=== PATIENT | female | born 1990 | race Hispanic/Latino ===

== ENCOUNTER 2022-10-30 11:55 | Emergency (ER) | payer OTHER, SELFPAY ==
[2022-10-30 12:20] LABS: Absolute Lymphocytes (CBC) 2.3 K/uL (0.7-4.9); Hematocrit 36.6 % (36.0-45.0); Lymphocytes % 24.1 % (15.3-44.8); MCV 84.4 fL (80-100); MPV 9.2 fL (7.6-11.3); RBC Red Blood Cell Count 4.34 M/uL (3.86-4.86)
[2022-10-30] MEDS ORDERED: NA CHLORIDE 0.9% 500 ML ONE (12:27)
[2022-10-30] MEDS ORDERED: METOCLOPRAMIDE 10 MG/2mL INJ ONE (12:27)
[2022-10-30] MEDS ORDERED: DIPHENHYDRAMINE 50 MG/ML VIAL ONE (12:27)
[2022-10-30 12:34] LABS: Potassium 3.3 mEq/L (3.5-5.1)
--- NOTE | 2022-10-30 13:06 | RAD REPORT ---
EXAM DESCRIPTION: CT - Head Brain Wo Cont - 10/30/2022 12:38 pm CLINICAL HISTORY: acute headach COMPARISON: Head angio dated 10/30/2022 TECHNIQUE: Noncontrast head CT images were obtained without IV contrast. Multiplanar reformats were generated and reviewed. All CT scans are performed using dose optimization technique as appropriate and may include automated exposure control or mA/KV adjustment according to patient size. FINDINGS: No intracranial hemorrhage, mass, or edema. Midline structures are unremarkable. Normal ventricular caliber for age. Subtle focus of hypoattenuation along the anterior left basal ganglia/ anterior limb internal capsule . Matthews-white matter differentiation is otherwise preserved, without evidence of acute infarct. No abn ormal extra-axial fluid collections. Mastoid air cells and visualized portions of the paranasal sinuses are clear. No acute bony findings. IMPRESSION: Subtle focus of hypoattenuation in the left anterior basal ganglia/ anterior limb of int ernal capsule region, nonspecific, but could represent a small infarct of indeterminate age. If there is clinical concern for acute ischemia, additional evaluation by stroke protocol MRI may be helpful. No evidence of an acute intracranial hemorrhage or mass-effect.
--- NOTE | 2022-10-30 13:09 | RAD REPORT ---
EXAM DESCRIPTION: CT - Head angio - 10/30/2022 12:39 pm CLINICAL HISTORY: headache, numbness: sah, rcvs, dissection COMPARISON: Head Brain Wo Cont dated 10/30/2022 TECHNIQUE: Axial CT angiography images of the head was performed with multiplanar and maximum intens ity projection reconstructions. Images performed following intravenous administration of 100mL Isovue 370. All CT scans are performed using dose optimization technique as appropriate and may include automated exposure control or mA/KV adjustment according to patient size. FINDINGS: No evidence of large vessel occlusion. No evidence of aneurysm or dissection flap is detec luna. No flow-limiting stenosis or vascular malformation identified. Antegrade flow is seen in the vertebral arteries. The vertebral arteries are codominant. The visualized dural venous sinuses are grossly patent. IMPRESSION: No evidence of large vessel occlusion or flow-limiting stenosis.
--- NOTE | 2022-10-30 13:29 | RAD REPORT ---
EXAM DESCRIPTION: CT - Neck Angio - 10/30/2022 12:39 pm CLINICAL HISTORY: headache, right arm unmbness COMPARISON: No comparisons TECHNIQUE: Axial CT angiography images of the head was performed with multiplanar and maximum intens ity projection reconstructions. Images performed following intravenous administration of 100mL Isovue 370. All CT scans are performed using dose optimization technique as appropriate and may include automated exposure control or mA/KV adjustment according to patient size. Quantification of carotid stenosis, if any, is performed according to NASCET criteria. FINDINGS: A left aortic arch is identified with normal three vessel configuration of the great vesse ls. No significant flow abnormality is seen of the common carotid bilaterally. No significant stenosis is identified involving the cervical segments of both internal carotid arteri es. Normal flow is seen within both vertebral arteries. IMPRESSION: No significant flow abnormality of the neck vessels is identified. CAROTID STENOSIS REFERENCE USING NASCET CRITERIA: % ICA stenosis = (1 - narrowest ICA diameter/diameter of distal cervical ICA) x 100. Mild - <50% stenosis. Moderate - 50-69% stenosis. Severe - 70-94% stenosis. Near occlusion - 95-99% stenosis. Occluded - 100% stenosis.
[2022-10-30 13:46] LABS: Specific Gravity > 1.030 (1.005-1.030)
--- NOTE | 2022-10-30 16:40 | RAD REPORT ---
EXAM DESCRIPTION: MRI - Brain Wo Cont - 10/30/2022 3:45 pm CLINICAL HISTORY: possible stroke COMPARISON: Noncontrast CT and CT angiogram of the same day TECHNIQUE: Multiplanar multisequence MRI of the brain utilizing rapid stroke protocol, performed wit hout IV contrast. FINDINGS: No evidence of acute infarct or other diffusion signal abnormality. No evidence of acute intracranial hemorrhage or abnormal extra-axial fluid collections. Ventricular caliber within normal for age. Midline structures are unremarkable. No white matter signal abnormalities. No mass effect or midline shift. Mastoid air cells and paranasal sinuses are clear. IMPRESSION: No acute intracranial process. No evidence of ventriculomegaly or mass effect.
--- NOTE | 2022-10-30 16:52 | EDPHYS ---
Physician Documentation [facility] Name: Prachi Estrada Age: 32 yrs Sex: Female : 1990 Arrival Date: 10/30/2022 Time: 11:55 Bed 3 Private MD: ED Physician Rodrigo Winters HPI: 10/30 12:18 This 32 yrs old Female presents to ER via EMS with complaints of Headache, bs3 Numbness Of Arm. 12:18 32-year-old female no significant past medical history presents with a headache and bs3 right-sided numbness of her face and her right upper extremity she was at work when she developed a sudden onset severe headache which she has never had before and then developed numbness on the right side of her face and her arm her headache continues but her other symptoms are intermittent denies any weakness per EMS her stroke scale is negative and they brought her here denies any chest pain shortness of breath nausea vomiting abdominal pain or anything else bothering her she did take Motrin before arriving. 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 - Social history:: Smoking status: Patient denies any tobacco usage or history of. ROS: 12:18 Constitutional: Negative for fever, chills bs3 12:18 All other systems are negative. Exam: 12:18 Constitutional: This is a well developed, well nourished patient who is awake, alert, bs3 and in no acute distress. Head/Face: Normocephalic, atraumatic. Eyes: Pupils equal round and reactive to light, extra-ocular motions intact. Lids and lashes normal. ENT: mmm, no posterior phyarngeal erythema Neck: Trachea midline, no thyromegaly, no neck stiffness Chest/axilla: Normal chest wall appearance and motion. Nontender with no deformity. No lesions are appreciated. Cardiovascular: Regular rate and rhythm with a normal S1 and S2. symmetric pulses in upper extremities Respiratory: Lungs have equal breath sounds bilaterally, clear to auscultation, no respiratory distress Skin: Warm, dry with normal turgor. Normal color with no rashes, no lesions, and no evidence of cellulitis. MS/ Extremity: Pulses equal, no cyanosis. Neurovascular intact. Full, normal range of motion. Neuro: Awake and alert, GCS 15, oriented to person, place, time, and situation. Cranial nerves II-XII grossly intact. Motor strength 5/5 in all extremities. Sensory grossly intact. 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 Behavior, mood, and affect are within normal limits. Vital Signs: 12:02 BP 127 / 71; Pulse 87; Resp 19; Temp 97.8; Pulse Ox 100% on R/A; Weight 70.31 kg; ph Height 5 ft. 5 in. ; 13:09 BP 118 / 72; Pulse 97; Resp 18; Pulse Ox 98% on R/A; ph 14:00 BP 109 / 72; Pulse 79; Resp 18; Pulse Ox 99% on R/A; db 15:00 BP 104 / 66; Pulse 86; Resp 18; Pulse Ox 100% on R/A; db 16:00 BP 112 / 72; Pulse 95; Resp 18; Pulse Ox 100% on R/A; db 17:00 BP 108 / 59; Pulse 97; Resp 16; Pulse Ox 99% on R/A; db 12:02 Body Mass Index 25.79 (70.31 kg, 165.1 cm) ph MDM: 12:00 Patient medically screened. bs3 12:18 Differential diagnosis: Possible migraine, headache NOS, RCVS, subarachnoid hemorrhage bs3 less likely to be pituitary apoplexy or cerebral venous sinus thrombosis as she has no risk factors for these no recent pregnancies no seizure-like activity we will treat headache will rule out subarachnoid hemorrhage given her symptoms onset less than 4 hours ago will rule out arterial disease/dissection. Data reviewed: vital signs, nurses notes. 16:50 ED course: Work-up was nondiagnostic the MRI was negative after the CTA showed a bs3 questionable finding patient remained feeling much better after reassessment will discharge home. 10/30 12:02 Order name: CBC with Diff; Complete Time: 12:45 bs3 10/30 12:02 Order name: BMP; Complete Time: 12:45 bs3 10/30 12:02 Order name: Test, Urine; Complete Time: 14:13 bs3 10/30 12:02 Order name: CT Head Brain wo Cont; Complete Time: 13:42 bs3 10/30 12:02 Order name: CT Head Angio; Complete Time: 13:42 bs3 10/30 12:02 Order name: CT Neck Angio; Complete Time: 13:42 bs3 10/30 15:42 Order name: Brain Wo Cont; Complete Time: 16:42 EDMS Administered Medications: 12:24 Drug: NS 0.9% IV 500 ml Route: IV; Rate: bolus; Site: right antecubital; ph 17:13 Follow up: Response: No adverse reaction; IV Status: Completed infusion; IV Intake: db 500ml 12:25 Drug: metoCLOPramide IVP 10 mg Route: IVP; Site: right antecubital; ph 17:13 Follow up: Response: No adverse reaction db 12:25 Drug: diphenhydrAMINE IVP 12.5 mg Route: IVP; Site: right antecubital; ph 17:13 Follow up: Response: No adverse reaction db Disposition Summary: 10/30/22 16:51 Discharge Ordered Location: Home bs3 Problem: new bs3 Symptoms: have improved bs3 Condition: Stable bs3 Diagnosis - Headache bs3 Followup: bs3 - With: Private Physician - When: 1 week - Reason: Re-evaluation by your physician Followup: bs3 - With: Ollie Galan MD - When: 5 - 6 days - Reason: Recheck today's complaints Discharge Instructions: - Discharge Summary Sheet bs3 - General Headache Without Cause, [id number] bs3 Forms: - Medication Reconciliation Form bs3 - Thank You Letter bs3 - [email or web address] bs3 - Work release form db Signatures: Dispatcher [employer] EDMS Johann Garcia PA PA jmm Hall, Patricia, RN RN ph Rodrigo Winters MD MD bs3 Latoya Rachel RN db Corrections: (The following items were deleted from the chart) 15:42 13:44 MR STROKE PROTOCOL+[email or web address].RAD.BRZ ordered. EDMS EDMS
--- NOTE | 2022-10-30 16:52 | ER ---
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 12:02 Coronavirus screen: Vaccine status: Patient reports receiving the 2nd dose of the covid ph vaccine. Ebola Screen: No symptoms or risks identified at this time. Initial Sepsis Screen: Does the patient meet any 2 criteria? No. Patient's initial sepsis screen is negative. Does the patient have a suspected source of infection? No. Patient's initial sepsis screen is negative. Risk Assessment: Do you want to hurt yourself or someone else? Patient reports no desire to harm self or others. Onset of symptoms was October 30, 2022. 12:02 Method Of Arrival: EMS: [facility] 12:02 Acuity: YADIRA 3 ph Triage Assessment: 12:08 General: Appears in no apparent distress. comfortable, well groomed, Behavior is calm, ph cooperative, appropriate for age. Pain: Complains of pain in left rastafari. Neuro: Level of Consciousness is awake, alert, obeys commands, Oriented to person, place, time, situation, Mental Health Therapist are equal bilaterally Moves all extremities. Full function Speech is normal, Facial symmetry appears normal, Pupils are PERRLA, Intact Reports headache in left frontal area. Cardiovascular: Capillary refill < 3 seconds in bilateral fingers Patient's skin is warm and dry. Respiratory: Airway is patent Respiratory effort is even, unlabored. GI: Reports nausea, vomiting, x 1, denies nausea at this time. Derm: Skin is intact, is healthy with good turgor, Skin is pink, warm \T\ dry. 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 - Social history:: Smoking status: Patient denies any tobacco usage or history of. Screenin:09 [facility] ED Fall Risk Assessment (Adult) History of falling in the last 3 months, ph including since admission No falls in past 3 months (0 pts) Confusion or Disorientation No (0 pts) Intoxicated or Sedated No (0 pts) Impaired Gait No (0 pts) Mobility Assist Device Used No (0 pt) Altered Elimination No (0 pt) Score/Fall Risk Level 0 - 2 = Low Risk Oriented to surroundings, Maintained a safe environment, Hourly rounding (assess needs \T\ fall precautionary measures) done. Abuse screen: Denies threats or abuse. Denies injuries from another. Nutritional screening: No deficits noted. Tuberculosis screening: No symptoms or risk factors identified. Assessment: 12:26 General: SEE TRIAGE ASSESSMENT. ph 13:39 Reassessment: Patient appears in no apparent distress at this time. Patient and/or ph family updated on plan of care and expected duration. Pain level reassessed. Patient is alert, oriented x 3, equal unlabored respirations, skin warm/dry/pink. Pt states that headache is improving. 15:27 Reassessment: Patient appears in no apparent distress at this time. Patient and/or ph family updated on plan of care and expected duration. Pain level reassessed. Patient is alert, oriented x 3, equal unlabored respirations, skin warm/dry/pink. Pt taken to MRI. 16:30 Reassessment: Patient appears in no apparent distress at this time. Patient and/or ph family updated on plan of care and expected duration. Pain level reassessed. Patient is alert, oriented x 3, equal unlabored respirations, skin warm/dry/pink. Vital Signs: 12:02 BP 127 / 71; Pulse 87; Resp 19; Temp 97.8; Pulse Ox 100% on R/A; Weight 70.31 kg; ph Height 5 ft. 5 in. ; 13:09 BP 118 / 72; Pulse 97; Resp 18; Pulse Ox 98% on R/A; ph 14:00 BP 109 / 72; Pulse 79; Resp 18; Pulse Ox 99% on R/A; db 15:00 BP 104 / 66; Pulse 86; Resp 18; Pulse Ox 100% on R/A; db 16:00 BP 112 / 72; Pulse 95; Resp 18; Pulse Ox 100% on R/A; db 17:00 BP 108 / 59; Pulse 97; Resp 16; Pulse Ox 99% on R/A; db 12:02 Body Mass Index 25.79 (70.31 kg, 165.1 cm) ph ED Course: 11:57 Patient arrived in ED. rg4 11:57 Johann Garcia PA is PHCP. m 11:57 Rodrigo Winters MD is Attending Physician. m 12:00 Christa Martinez, RN is Primary Nurse. ph 12:00 Rodrigo Winters MD is Attending Physician. bs3 12:07 Triage completed. ph 12:08 Arm band placed on Patient placed in an exam room. ph 12:09 Patient has correct armband on for positive identification. Bed in low position. Call ph light in reach. Side rails up X 1. Client placed on continuous cardiac and pulse oximetry monitoring. NIBP monitoring applied. 12:26 Maintain EMS IV. Dressing intact. Good blood return noted. Site clean \T\ dry. Gauge \T\ ph site: 20 RAC. 12:40 CT Head Brain wo Cont In Process Unspecified. EDMS 12:41 CT Head Angio In Process Unspecified. EDMS 12:41 CT Neck Angio In Process Unspecified. EDMS 13:39 No provider procedures requiring assistance completed. ph 15:42 Brain Wo Cont In Process Unspecified. EDMS 16:51 Ollie Glaan MD is Referral Physician. bs3 17:13 IV discontinued, intact, bleeding controlled, No redness/swelling at site. db Administered Medications: 12:24 Drug: NS 0.9% IV 500 ml Route: IV; Rate: bolus; Site: right antecubital; ph 17:13 Follow up: Response: No adverse reaction; IV Status: Completed infusion; IV Intake: db 500ml 12:25 Drug: metoCLOPramide IVP 10 mg Route: IVP; Site: right antecubital; ph 17:13 Follow up: Response: No adverse reaction db 12:25 Drug: diphenhydrAMINE IVP 12.5 mg Route: IVP; Site: right antecubital; ph 17:13 Follow up: Response: No adverse reaction db Medication: 12:09 VIS not applicable for this client. ph Intake: 17:13 IV: 500ml; Total: 500ml. db Outcome: 16:51 Discharge ordered by . bs3 17:13 Discharged to home ambulatory. db 17:13 Condition: stable 17:13 Discharge instructions given to patient, Instructed on discharge instructions, follow up and referral plans. 17:26 Patient left the ED. db Signatures: Dispatcher [employer] EDJohann Manzanares PA PA jmm Hall, Patricia, RN RN Daisy Nguyen rg4 Rodrigo Winters MD MD bs3 Latoya Rachel RN RN db Corrections: (The following items were deleted from the chart) 12:07 12:01 Chief complaint: ph ph
[2022-10-30 18:07] VITALS: TEMP 97.8
[2022-10-30 18:13] VITALS: BP 108/59; O2SAT 99
== END 2022-10-30 17:26 | disposition home or self-care (01) ==
LOC: ER 11:55
DX: R51.9 Headache, unspecified (principal); R20.0 Anesthesia of skin
CPT/HCPCS: 36415; 70450; 70496; 70498; 70551; 80048; 81025; 85025; J1200; J2765; J7040; Q9967